=== PATIENT | female | born 1995 | race African-American/Black ===

== ENCOUNTER 2020-12-18 15:50 | Emergency (ER) | payer OTHER | END 2020-12-18 16:09 | disposition home or self-care (01) | LOC: JVIRT 15:50 | DX: U07.1 COVID-19 (principal) | CPT/HCPCS: C9803; G2012-GT; U0003 ==

== ENCOUNTER 2024-05-02 19:52 | Emergency (ER) | payer OTHER ==
[2024-05-02 20:08] VITALS: BP 128/81; PULSE 79; RESP 16; TEMP 98; BMI 30.7
== END 2024-05-02 20:28 | disposition home or self-care (01) ==
LOC: FER 19:52
DX: B37.31 Acute candidiasis of vulva and vagina (principal)
CPT/HCPCS: 99283-25